=== PATIENT | male | born 1990 | race Caucasian/White ===

== ENCOUNTER 2017-06-13 12:30 | Emergency (ER) | payer OTHER ==
[~2017-06-13] VITALS: Ht 188 cm; Wt 103.0 kg
[~2017-06-13 12:30] MED LIST: BENZ1TAB PO; FLUP5TAB PO; INVE9TAB PO; LORA-474 PO; PROZ40CA PO
[2017-06-13 12:31] VITALS: BP 130/92; PULSE 103; RESP 12; TEMP 98.9; O2SAT 96
[2017-06-13] MEDS ORDERED: BENZ0.5T PO (13:23)
[2017-06-13] MEDS ORDERED: FLUO40CA PO (13:24)
[2017-06-13] MEDS ORDERED: LORA1TAB12 PO (13:24)
[2017-06-13] MEDS ORDERED: PALI234P IM (13:27)
--- NOTE | 2017-06-13 13:43 | PD ---
HPI Chief Complaint: Psychiatric Symptoms Time Seen by Provider: 13:39 Travel History International Travel<30 days: No Contact w/Intl Traveler<30days: No Traveled to known affect area: No History of Present Illness HPI 27-year-old male with a history of schizoaffective disorder is brought in by his mother today with visual and auditory hallucinations. Patient states that this is not normal. He states that when he becomes manic he does get these hallucinations. Patient also says that when he drinks beer he may have more exacerbations. Patient denies suicidal or homicidal ideations. Denies ingestions. States he does follow [facility]. Patient has no other complaints today and would like to receive assistance. Patient states compliance with his medications. PFSH Past Medical History Anxiety: Yes Depression: Yes Cancer: No Cardiovascular Problems: No Endocrine: No Genitourinary: No Immune Disorder: No Musculoskeletal: No Neurologic: No Psychiatric: Yes Reproductive: No Respiratory: No Schizophrenia: Yes Social History Alcohol Use: No Tobacco Use: No Substance Use: No Allergies-Medications (Allergen,Severity, Reaction): Coded Allergies: No Known Allergies (Unverified Adverse Reaction, Unknown, 06/13/17) Reported Meds & Prescriptions Reported Meds & Active Scripts Active Reported Invega Sustenna Inj (Paliperidone Palmitate) 234 Mg/1.5 Ml Inj 156 Mg IM [id number] Lorazepam 1 Mg Tab 1 Mg PO BID Fluoxetine (Fluoxetine HCl) 40 Mg Cap 80 Cap PO DAILY Benztropine (Benztropine Mesylate) 0.5 Mg Tab 2 Mg PO DAILY Review of Systems Except as stated in HPI: all other systems reviewed are Neg Physical Exam Narrative GENERAL: Well-developed well-nourished in no apparent distress SKIN: Focused skin assessment warm/dry. HEAD: Atraumatic. Normocephalic. EYES: Pupils equal and round. No scleral icterus. No injection or drainage. ENT: No nasal bleeding or discharge. Mucous membranes pink and moist. NECK: Trachea midline. No JVD. CARDIOVASCULAR: Regular rate and rhythm. No murmur appreciated. RESPIRATORY: No accessory muscle use. Clear to auscultation. Breath sounds equal bilaterally. MUSCULOSKELETAL: No obvious deformities. No clubbing. No cyanosis. No edema. No CVA tenderness NEUROLOGICAL: Awake and alert. No obvious cranial nerve deficits. Motor grossly within normal limits. Normal speech. PSYCHIATRIC: Flat affect. Judgment and insight appears to be normal Data Data Last Documented VS Vital Signs Date Time Temp Pulse Resp B/P (MAP) Pulse Ox O2 Delivery O2 Flow Rate FiO2 06/13/17 17:28 88 18 135/70 (91) 98 06/13/17 14:00 98.4 Orders Orders Complete Blood Count With Diff (06/13/17 13:40) Comprehensive Metabolic Panel (06/13/17 13:40) Thyroid Stimulating Hormone (06/13/17 13:40) Urinalysis - C+S If Indicated (06/13/17 13:40) Psych Screen (06/13/17 13:40) Drug Screen, Random Urine (06/13/17 13:40) Diet Regular Basic (06/13/17 Dinner) Labs Laboratory Tests Test 06/13/17 14:39 06/13/17 14:52 White Blood Count 9.8 TH/MM3 Red Blood Count 4.69 MIL/MM3 Hemoglobin 14.8 GM/DL Hematocrit 42.4 % Mean Corpuscular Volume 90.5 FL Mean Corpuscular Hemoglobin 31.6 PG Mean Corpuscular Hemoglobin Concent 34.9 % Red Cell Distribution Width 12.3 % Platelet Count 242 TH/MM3 Mean Platelet Volume 9.5 FL Neutrophils (%) (Auto) 71.5 % Lymphocytes (%) (Auto) 21.8 % Monocytes (%) (Auto) 5.7 % Eosinophils (%) (Auto) 0.7 % Basophils (%) (Auto) 0.3 % Neutrophils # (Auto) 7.0 TH/MM3 Lymphocytes # (Auto) 2.1 TH/MM3 Monocytes # (Auto) 0.6 TH/MM3 Eosinophils # (Auto) 0.1 TH/MM3 Basophils # (Auto) 0.0 TH/MM3 CBC Comment DIFF FINAL Differential Comment Blood Urea Nitrogen 12 MG/DL Creatinine 0.95 MG/DL Random Glucose 81 MG/DL Total Protein 8.0 GM/DL Albumin 4.2 GM/DL Calcium Level 9.0 MG/DL Alkaline Phosphatase 70 U/L Aspartate Amino Transf (AST/SGOT) 16 U/L Alanine Aminotransferase (ALT/SGPT) 55 U/L Total Bilirubin 0.4 MG/DL Sodium Level 139 MEQ/L Potassium Level 3.8 MEQ/L Chloride Level 106 MEQ/L Carbon Dioxide Level 25.4 MEQ/L Anion Gap 8 MEQ/L Estimat Glomerular Filtration Rate 94 ML/MIN Thyroid Stimulating Hormone 3rd Gen 1.070 uIU/ML Urine Color YELLOW Urine Turbidity CLEAR Urine pH 7.0 Urine Specific [place] 1.016 Urine Protein NEG mg/dL Urine Glucose (UA) NEG mg/dL Urine Ketones NEG mg/dL Urine Occult Blood NEG Urine Nitrite NEG Urine Bilirubin NEG Urine Urobilinogen LESS THAN 2.0 MG/DL Urine Leukocyte Esterase NEG Urine WBC 1 /hpf Urine Mucus FEW /lpf Microscopic Urinalysis Comment CULT NOT INDICATED Urine Opiates Screen NEG Urine Barbiturates Screen NEG Urine Amphetamines Screen NEG Urine Benzodiazepines Screen NEG Urine Cocaine Screen NEG Urine Cannabinoids Screen NEG MDM Medical Decision Making Medical Screen Exam Complete: Yes Emergency Medical Condition: Yes Differential Diagnosis Psychosis, delirium, schizoaffective disorder, schizophrenia Narrative Course 27-year-old male with a history of schizoaffective disorder is brought in by his mother today with visual and auditory hallucinations. Patient states that this is not normal. He states that when he becomes manic he does get these hallucinations. Patient also says that when he drinks beer he may have more exacerbations. Patient denies suicidal or homicidal ideations. Denies ingestions. States he does follow [facility]. Patient has no other complaints today and would like to receive assistance. Patient states compliance with his medications. Vital signs stable Physical exam findings consistent with depression, schizoaffective disorder Labs stable. Patient is be medically cleared to see psych. Diagnosis Primary Impression: Schizoaffective disorder Qualified Codes: F25.1 - Schizoaffective disorder, depressive type Condition: Stable Maria Del Carmen Colvin Jun 13, 2017 13:43
[2017-06-13 14:00] VITALS: BP 126/87; PULSE 95; RESP 18; TEMP 98.4; O2SAT 98
[2017-06-13 15:31] LABS: BASOPHIL % 0.3 % (0.0-2.0); EOSINOPHIL # 0.1 TH/MM3 (0-0.4); EOSINOPHIL % 0.7 % (0.0-4.0); HEMATOCRIT 42.4 % (39.0-51.0); HEMOGLOBIN 14.8 GM/DL (13.0-17.0); LYMPH % 21.8 % (9.0-44.0); LYMPHOCYTE # 2.1 TH/MM3 (1.0-4.8); MEAN CELL VOLUME 90.5 FL (80.0-100.0); MEAN CORPUSCULAR HEMOGLOBIN 31.6 PG (27.0-34.0); MEAN CORPUSCULAR HGB CONC 34.9 % (32.0-36.0); MEAN PLATELET VOLUME 9.5 FL (7.0-11.0); MONO % 5.7 % (0.0-8.0); MONOCYTE # 0.6 TH/MM3 (0-0.9); NEUT % 71.5 % (16.0-70.0); PLATELET COUNT 242 TH/MM3 (150-450); RED BLOOD COUNT 4.69 MIL/MM3 (4.50-5.90); RED CELL DISTRIBUTION WIDTH 12.3 % (11.6-17.2); WHITE BLOOD COUNT 9.8 TH/MM3 (4.0-11.0)
[2017-06-13 15:32] LABS: CHLORIDE 106 MEQ/L (98-107); SODIUM (NA) 139 MEQ/L (136-145)
[2017-06-13 15:35] LABS: BILIRUBIN, URINE NEG (NEG); BLOOD, URINE NEG (NEG); GLUCOSE,URINE NEG (NEG); KETONE, URINE NEG (NEG); MUCUS URINE FEW /lpf (OCC); NITRITE,URINE NEG (NEG); URINE COLOR YELLOW (YELLW/STRAW); URINE LEUKOCYTE ESTERASE NEG (NEG)
[2017-06-13 16:17] LABS: BLOOD UREA NITROGEN 12 MG/DL (7-18); CREATININE 0.95 MG/DL (0.60-1.30); GLOMERULAR FILTRATION RATE 94 ML/MIN (>89)
[2017-06-13 16:18] LABS: ALBUMIN 4.2 GM/DL (3.4-5.0); ALKALINE PHOSPHATASE 70 U/L (45-117); ALT (GPT) 55 U/L (12-78); AST (GOT) 16 U/L (15-37); BICARBONATE 25.4 MEQ/L (21.0-32.0); GLUCOSE,RANDOM 81 MG/DL (74-106); TOTAL BILIRUBIN ADULT 0.4 MG/DL (0.2-1.0)
[2017-06-13 17:28] VITALS: BP 135/70; PULSE 88; RESP 18; O2SAT 98
[2017-06-13 22:16] VITALS: BP 134/76; PULSE 64; RESP 16; TEMP 98.1; O2SAT 96
[2017-06-14 02:55] VITALS: BP 114/69; PULSE 78; RESP 16; TEMP 99; O2SAT 97
[2017-06-14 06:45] VITALS: BP 143/75; PULSE 88; RESP 16; TEMP 98.6; O2SAT 98
[2017-06-14 11:23] VITALS: BP 126/72; PULSE 82; RESP 18; O2SAT 98
[2017-06-14] MEDS ORDERED: HALOPERIDOL 5 MG TAB PO STA (13:08)
[2017-06-14] MEDS ORDERED: HALO5TAB PO (13:10)
--- NOTE | 2017-06-14 13:11 | PD ---
Physical Exam Date Seen by Provider: Jun 14, 2017 Time Seen by Provider: 13:08 Data Data Last Documented VS Vital Signs Date Time Temp Pulse Resp B/P (MAP) Pulse Ox O2 Delivery O2 Flow Rate FiO2 06/14/17 11:23 82 18 126/72 (90) 98 Room Air 06/14/17 06:45 98.6 Orders Orders Complete Blood Count With Diff (06/13/17 13:40) Comprehensive Metabolic Panel (06/13/17 13:40) Thyroid Stimulating Hormone (06/13/17 13:40) Urinalysis - C+S If Indicated (06/13/17 13:40) Psych Screen (06/13/17 13:40) Drug Screen, Random Urine (06/13/17 13:40) Diet Regular Basic (06/13/17 Dinner) Diet Regular Basic (06/14/17 Breakfast) Diet Regular Basic (06/14/17 Lunch) Ed Discharge Order (06/14/17 13:07) Labs Laboratory Tests Test 06/13/17 14:39 06/13/17 14:52 White Blood Count 9.8 TH/MM3 Red Blood Count 4.69 MIL/MM3 Hemoglobin 14.8 GM/DL Hematocrit 42.4 % Mean Corpuscular Volume 90.5 FL Mean Corpuscular Hemoglobin 31.6 PG Mean Corpuscular Hemoglobin Concent 34.9 % Red Cell Distribution Width 12.3 % Platelet Count 242 TH/MM3 Mean Platelet Volume 9.5 FL Neutrophils (%) (Auto) 71.5 % Lymphocytes (%) (Auto) 21.8 % Monocytes (%) (Auto) 5.7 % Eosinophils (%) (Auto) 0.7 % Basophils (%) (Auto) 0.3 % Neutrophils # (Auto) 7.0 TH/MM3 Lymphocytes # (Auto) 2.1 TH/MM3 Monocytes # (Auto) 0.6 TH/MM3 Eosinophils # (Auto) 0.1 TH/MM3 Basophils # (Auto) 0.0 TH/MM3 CBC Comment DIFF FINAL Differential Comment Blood Urea Nitrogen 12 MG/DL Creatinine 0.95 MG/DL Random Glucose 81 MG/DL Total Protein 8.0 GM/DL Albumin 4.2 GM/DL Calcium Level 9.0 MG/DL Alkaline Phosphatase 70 U/L Aspartate Amino Transf (AST/SGOT) 16 U/L Alanine Aminotransferase (ALT/SGPT) 55 U/L Total Bilirubin 0.4 MG/DL Sodium Level 139 MEQ/L Potassium Level 3.8 MEQ/L Chloride Level 106 MEQ/L Carbon Dioxide Level 25.4 MEQ/L Anion Gap 8 MEQ/L Estimat Glomerular Filtration Rate 94 ML/MIN Thyroid Stimulating Hormone 3rd Gen 1.070 uIU/ML Urine Color YELLOW Urine Turbidity CLEAR Urine pH 7.0 Urine Specific [place] 1.016 Urine Protein NEG mg/dL Urine Glucose (UA) NEG mg/dL Urine Ketones NEG mg/dL Urine Occult Blood NEG Urine Nitrite NEG Urine Bilirubin NEG Urine Urobilinogen LESS THAN 2.0 MG/DL Urine Leukocyte Esterase NEG Urine WBC 1 /hpf Urine Mucus FEW /lpf Microscopic Urinalysis Comment CULT NOT INDICATED Urine Opiates Screen NEG Urine Barbiturates Screen NEG Urine Amphetamines Screen NEG Urine Benzodiazepines Screen NEG Urine Cocaine Screen NEG Urine Cannabinoids Screen NEG MDM Supervised Visit with LUC: Sue Webb Course 27 YO M who presents to the ED for VOLUNTARY psychiatric evaluation. Patient was initially seen and medially cleared by KIMBERLY Olmedo. He was then evaluated by Dr. Gordon, psychiatry, and deemed safe for discharge and outpatient follow up. Patient is stable and discharged home. Diagnosis Primary Impression: Schizoaffective disorder Qualified Codes: F25.1 - Schizoaffective disorder, depressive type Referrals: Psychiatrist Additional Instruction: Take medication as prescribed. Follow up as discussed with Dr. Gordon. Return to the ED for any urgent or emergent medical condition. Med/Other Pt SpecificInfo: Prescription(s) given Disposition: DISCHARGE HOME Condition: Stable Nancy Preston Jun 14, 2017 13:11
--- NOTE | 2017-06-14 13:24 | PD.PSY.CON ---
Provisional Diagnosis Admission Date [place]. Schizophrenia chronic paranoid type f 20.0 History of Present Illness Service Psychiatry Consult Requested By EDLA Reason for Consult Assessment Primary Care Physician No Primary Care Physician HPI Issues a 27-year-old white male well-known to me from multiple prior contacts, is a patient with me in the now discontinued outpatient medication management clinic. Is now being seen through [facility]. She lives with his mother. He is now stating increased auditory hallucinations somewhat more command and intrusive nature. They do wax and wane somewhat but the holidays of making it somewhat more intense. He does denies suicidality homicidality. He states his been some alcohol use recently. He denies other drug use. Is been compliant with his outpatient treatments is also being prescribed Prozac and invega sustena monthly. Patient states there is some more isolation. 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 However he is reactive to me an appropriate period we did discuss options ranging from inpatient hospitalization to adjust other medications. He states he would like to be home for crispness with his mother he is able contract for his own safety. We will offer him Haldol 5 mg by mouth right now and then give him a prescription for Haldol 5 mg twice a day #60 to take until he goes to his outpatient appointment and they can further adjust his medications. Also suggesting absolute sobriety Review of Systems Constitutional: DENIES: Diaphoretic episodes, Fatigue, Fever, Weight gain, Weight loss, Chills, Dizziness, Change in appetite, Night Sweats Endocrine: DENIES: Heat/cold intolerance, Polydipsia, Polyuria, Polyphagia Eyes: DENIES: Blurred vision, Diplopia, Eye inflammation, Eye pain, Vision loss , Photosensitivity, Double Vision Ears, nose, mouth, throat: DENIES: Tinnitus, Hearing loss, Vertigo, Nasal discharge, Oral lesions, Throat pain, Hoarseness, Ear Pain, Running Nose, Epistaxis, Sinus Pain, Toothache, Odynophagia Respiratory: DENIES: Apneas, Cough, Snoring, Wheezing, Hemoptysis, Sputum production, Shortness of breath Cardiovascular: DENIES: Chest pain, Palpitations, Syncope, Dyspnea on Exertion , PND, Lower Extremity Edema, Orthopnea, Claudication Gastrointestinal: DENIES: Abdominal pain, Black stools, Bloody stools, Constipation, Diarrhea, Nausea, Vomiting, Difficulty Swallowing, Anorexia Genitourinary: DENIES: Sexual dysfunction, Urinary frequency, Urinary incontinence, Urgency, Hematuria, Dysuria, Nocturia, Penile Discharge, Testicular Pain, Testicular Swelling Musculoskeletal: DENIES: Joint pain, Muscle aches, Stiffness, Joint Swelling, Back pain, Neck pain Integumentary: DENIES: Abnormal pigmentation, Nail changes, Pruritus, Rash Hematologic/lymphatic: DENIES: Bruising, Lymphadenopathy Immunologic/allergic: DENIES: Eczema, Urticaria Neurologic: DENIES: Abnormal gait, Headache, Localized weakness, Paresthesias, Seizures, Speech Problems, Tremor, Poor Balance Psychiatric: COMPLAINS OF: Anxiety, Hallucinations, Suicidal Ideation Past Family Social History Coded Allergies: No Known Allergies (Unverified Allergy, Unknown, 06/14/17) Active Scripts Haloperidol (Haloperidol) 5 Mg Tab, 5 MG PO BID for health, #60 TAB 0 Refills Prov:Kulwinder Gordon MD 06/14/17 Reported Medications Paliperidone Palmitate Inj (Invega Sustenna Inj) 234 Mg/1.5 Ml Inj, 156 MG IM [id number] for Schizophrenia, #1 VIAL 0 Refills 06/13/17 Lorazepam (Lorazepam) 1 Mg Tab, 1 MG PO BID, TAB 0 Refills 06/13/17 Fluoxetine (Fluoxetine) 40 Mg Cap, 80 CAP PO DAILY, #30 CAP 0 Refills 06/13/17 Benztropine (Benztropine) 0.5 Mg Tab, 2 MG PO DAILY, #30 TAB 0 Refills 06/13/17 Discontinued Scripts Paliperidone ER (Invega) 9 Mg Tab, 9 MG PO DAILY for health, #30 TAB 0 Refills Prov:Kulwinder Gordon MD 05/28/16 Lorazepam (Ativan) 1 Mg Tab, 1 MG PO TID for health, #90 TAB 2 Refills Prov:Kulwinder Gordon MD 05/28/16 Fluoxetine (Prozac) 40 Mg Cap, 40 MG PO DAILY for health, #30 CAP 2 Refills Prov:Kulwinder Gordon MD 05/28/16 Benztropine (Benztropine) 1 Mg Tab, 1 MG PO HS for mental health, #30 TAB 2 Refills Prov:Kulwinder Gordon MD 05/28/16 Fluphenazine (Fluphenazine) 5 Mg Tab, 5 MG PO HS for mental health, #30 TAB 2 Refills Prov:Kulwinder Gordon MD 05/28/16 Current Medications Medications (Trade) Dose Ordered Sig/Cirilo Route Start Time Stop Time Status Last Admin (Haldol) 5 mg ONCE STAT PO 06/14/17 13:08 06/14/17 13:09 Family Psych History Denies Social History Patient single lives with his mother Patient's Strengths (min. 2) Verbal labile axis healthcare cooperative Physical Exam Patient seen screen in ED exam reviewed and agreed with Vital Signs Vital Signs Date Time Temp Pulse Resp B/P (MAP) Pulse Ox O2 Delivery O2 Flow Rate FiO2 06/14/17 11:23 82 18 126/72 (90) 98 Room Air 06/14/17 06:45 98.6 Lab Results Test 06/13/17 14:39 06/13/17 14:52 White Blood Count 9.8 TH/MM3 Red Blood Count 4.69 MIL/MM3 Hemoglobin 14.8 GM/DL Hematocrit 42.4 % Mean Corpuscular Volume 90.5 FL Mean Corpuscular Hemoglobin 31.6 PG Mean Corpuscular Hemoglobin Concent 34.9 % Red Cell Distribution Width 12.3 % Platelet Count 242 TH/MM3 Mean Platelet Volume 9.5 FL Neutrophils (%) (Auto) 71.5 % Lymphocytes (%) (Auto) 21.8 % Monocytes (%) (Auto) 5.7 % Eosinophils (%) (Auto) 0.7 % Basophils (%) (Auto) 0.3 % Neutrophils # (Auto) 7.0 TH/MM3 Lymphocytes # (Auto) 2.1 TH/MM3 Monocytes # (Auto) 0.6 TH/MM3 Eosinophils # (Auto) 0.1 TH/MM3 Basophils # (Auto) 0.0 TH/MM3 CBC Comment DIFF FINAL Differential Comment Blood Urea Nitrogen 12 MG/DL Creatinine 0.95 MG/DL Random Glucose 81 MG/DL Total Protein 8.0 GM/DL Albumin 4.2 GM/DL Calcium Level 9.0 MG/DL Alkaline Phosphatase 70 U/L Aspartate Amino Transf (AST/SGOT) 16 U/L Alanine Aminotransferase (ALT/SGPT) 55 U/L Total Bilirubin 0.4 MG/DL Sodium Level 139 MEQ/L Potassium Level 3.8 MEQ/L Chloride Level 106 MEQ/L Carbon Dioxide Level 25.4 MEQ/L Anion Gap 8 MEQ/L Estimat Glomerular Filtration Rate 94 ML/MIN Thyroid Stimulating Hormone 3rd Gen 1.070 uIU/ML Urine Color YELLOW Urine Turbidity CLEAR Urine pH 7.0 Urine Specific [place] 1.016 Urine Protein NEG mg/dL Urine Glucose (UA) NEG mg/dL Urine Ketones NEG mg/dL Urine Occult Blood NEG Urine Nitrite NEG Urine Bilirubin NEG Urine Urobilinogen LESS THAN 2.0 MG/DL Urine Leukocyte Esterase NEG Urine WBC 1 /hpf Urine Mucus FEW /lpf Microscopic Urinalysis Comment CULT NOT INDICATED Urine Opiates Screen NEG Urine Barbiturates Screen NEG Urine Amphetamines Screen NEG Urine Benzodiazepines Screen NEG Urine Cocaine Screen NEG Urine Cannabinoids Screen NEG Mental Status Examination Appearance: Appropriate Consciousness: Alert Orientation: x4 Motor Activity: Normal gait Speech: Hesitant, Slow Language: Adequate Fund of Knowledge: Adequate Attention and Concentration: Adequate Memory: Unremarkable Mood: Other (euthymic to somewhat restricted) Affect: Other (decreased range and intensity) Thought Process & Associations: Intact Thought Content: Appropriate, Hallucinations Hallucination Type: Auditory (waxes and wanes somewhat intrusive and at times loud) Delusion Type: None Suicidal Ideation: Yes (vaguely able contracted to no harm) Suicidal Plan: No Suicidal Intention: No Homicidal Ideation: No Homicidal Plan: No Homicidal Intention: No Insight: Adequate Judgment: Adequate Assessment & Plan Problem List: (1) Paranoid type schizophrenia, chronic state ICD Codes: F20.0 - Paranoid schizophrenia Assessment & Plan Patient psychosis persists though he shows good insight and judgment with it. Will offer him Haldol 5 mg by mouth now and then twice a day #60 to last until his appointment with [facility]. Patient able contracted to no harm. Does wish be home with his mother for bria is able to contracted to no harm he'll be compliant with his medications and follow-up outpatient Discharge Planning Follow-up outpatient [facility] use medications as ordered above Request HC Surrog/Guard Advoc?: No Kulwinder Gordon MD Jun 14, 2017 13:24
[2017-06-14 13:27] VITALS: BP 126/71; PULSE 82; RESP 18; O2SAT 98
== END 2017-06-14 14:39 | disposition home or self-care (01) ==
LOC: NEPJ 12:30
DX: F25.9 Schizoaffective disorder, unspecified (principal); F41.9 Anxiety disorder, unspecified; Z79.899 Other long term (current) drug therapy
CPT/HCPCS: 80053; 80307; 81001; 84443; 85025; 99284